=== PATIENT | female | born 1970 | race Caucasian/White ===

== ENCOUNTER 2022-06-25 19:38 | Inpatient (IN) | payer SELFPAY ==
[2022-06-25 20:21] VITALS: BMI 23.9
[2022-06-25] MEDS ORDERED: DICYCLOMINE HCL 10 MG CAPSULE PO PRN (22:33)
[2022-06-25] MEDS ORDERED: P-EPHED 60MG/TRIPROLIDI 2.5MG TABLET PO PRN (22:33)
[2022-06-25] MEDS ORDERED: NALOXONE HCL 0.4 MG/ML VIAL IM PRN (22:33)
[2022-06-25] MEDS ORDERED: BENZOCAINE/MENTHOL (CHLORASEPTIC ) LOZENGE MM PRN (22:33)
[2022-06-25] MEDS ORDERED: guaiFENesin 600 MG TABLET.ER (FP) PO PRN (22:33)
[2022-06-25] MEDS ORDERED: ACETAMINOPHEN 325 MG TABLET (FP) PO PRN ×2 (22:33)
[2022-06-25] MEDS ORDERED: BISMUTH SUBSALICYLATE 524 MG/30 ML PO PRN (22:33)
[2022-06-25] MEDS ORDERED: LOPERAMIDE HCL 2 MG CAPSULE PO PRN (22:33)
[2022-06-25] MEDS ORDERED: ONDANSETRON *ODT* 4 MG TABLET SL PRN (22:33)
[2022-06-25] MEDS ORDERED: NALOXONE HCL (KLOXXADO) 8 MG SPRAY NS PRN (22:33)
[2022-06-25] MEDS ORDERED: MAG HYDROX/AL HYDROX/SIMETH 30 ML UNIT-DOSE CUP PO PRN (22:33)
[2022-06-25] MEDS ORDERED: BENZONATATE 200 MG CAPSULE PO PRN (22:33)
[2022-06-25] MEDS ORDERED: MAGNESIUM HYDROX 2400MG/30ML ORAL SUSPENSION 30 ML CUP PO PRN (22:33)
[2022-06-25] MEDS ORDERED: NICOTINE POLACRILEX 2 MG GUM BUC PRN (22:33)
[2022-06-25] MEDS ORDERED: POLYETHYLENE GLYCOL (HEALTHYLAX) 3350 17 GM PACKET PO PRN (22:33)
[2022-06-25] MEDS ORDERED: chlordiazePOXIDE HCL 25 MG CAPSULE PO PRN (22:39)
[2022-06-25] MEDS ORDERED: chlordiazePOXIDE HCL 25 MG CAPSULE PO SCH (23:00)
[2022-06-25] MEDS ORDERED: METOPROLOL TARTRATE 25 MG TABLET (FP) PO ONE (23:00)
[2022-06-25] MEDS: diazePAM 5 MG TABLET PO SCH (23:48)
[2022-06-26] MEDS: diazePAM 5 MG TABLET PO SCH ×4 (05:48→22:19)
[2022-06-26] MEDS: METHOCARBAMOL 500 MG TABLET PO PRN ×2 (10:43→17:38)
[2022-06-26] MEDS: PRENATAL VITAMINS W/ FOLIC ACID TABLET (FP) PO SCH (10:43)
[2022-06-26] MEDS: NICOTINE 14 MG/24 HOURS TOPICAL PATCH TD SCH (10:43)
[2022-06-26 10:59] LABS: HEMATOCRIT 38.1 % (32.4-45.2); MCH 30.6 pg (25.7-33.7); MCHC 34.1 g/dl (32.0-36.0); MEAN CELL VOLUME 89.8 fl (80-96); MEAN PLT VOLUME 8.7 fl (7.5-11.1); PLATELET COUNT 182 10^3/uL (134-434); RBC 4.25 M/mm3 (3.60-5.2); RDW 15.7 % (11.6-15.6); WHITE BLOOD COUNT 4.2 K/mm3 (4.0-10.0)
[2022-06-26 11:01] LABS: POTASSIUM 4.2 mmol/L (3.5-5.1)
[2022-06-26 11:11] LABS: CALCIUM 8.9 mg/dL (8.5-10.1)
[2022-06-26 11:12] LABS: ALBUMIN 3.5 g/dl (3.4-5.0); BLOOD UREA NITROGEN 10.4 mg/dL (7-18)
[2022-06-26 11:19] LABS: BILIRUBIN,TOTAL 0.4 mg/dL (0.2-1); TOT PROT 6.5 g/dl (6.4-8.2)
[2022-06-26] MEDS: MELATONIN 5 MG TABLETS PO SCH (22:18)
[2022-06-26] MEDS: THIAMINE HCL 100 MG TABLET (FP) PO SCH (22:18)
[2022-06-26] MEDS: cloNIDine HCL 0.1 MG TABLET PO PRN (22:20)
[2022-06-27] MEDS ORDERED: chlordiazePOXIDE HCL 25 MG CAPSULE PO SCH (05:00)
[2022-06-27] MEDS: diazePAM 5 MG TABLET PO SCH ×3 (05:37→22:23)
[2022-06-27] MEDS: METHOCARBAMOL 500 MG TABLET PO PRN ×2 (05:40→22:22)
[2022-06-27] MEDS: LEVOTHYROXINE 100 MCG, LEVOTHYROXINE 50 MCG PO SCH (06:04)
[2022-06-27] MEDS ORDERED: LEVOTHYROXINE NA 150 MCG TABLET PO SCH (07:00)
[2022-06-27] MEDS: NICOTINE 14 MG/24 HOURS TOPICAL PATCH TD SCH (10:25)
[2022-06-27] MEDS: PRENATAL VITAMINS W/ FOLIC ACID TABLET (FP) PO SCH (10:25)
[2022-06-27] MEDS: diazePAM 5 MG TABLET PO PRN (10:26)
[2022-06-27] MEDS: THIAMINE HCL 100 MG TABLET (FP) PO SCH (22:22)
[2022-06-27] MEDS: hydrOXYzine PAMOATE 25 MG CAPSULE (FP) PO PRN (22:22)
[2022-06-27] MEDS: MELATONIN 5 MG TABLETS PO SCH (22:23)
[2022-06-27] MEDS: cloNIDine HCL 0.1 MG TABLET PO PRN (22:25)
[2022-06-28] MEDS ORDERED: chlordiazePOXIDE HCL 10 MG CAPSULE PO PRN
[2022-06-28] MEDS ORDERED: chlordiazePOXIDE HCL 10 MG CAPSULE PO SCH (05:00)
[2022-06-28] MEDS: diazePAM 5 MG TABLET PO SCH ×2 (05:06→17:11)
[2022-06-28] MEDS: LEVOTHYROXINE 100 MCG, LEVOTHYROXINE 50 MCG PO SCH (06:27)
[2022-06-28] MEDS: PRENATAL VITAMINS W/ FOLIC ACID TABLET (FP) PO SCH (10:27)
[2022-06-28] MEDS: NICOTINE 14 MG/24 HOURS TOPICAL PATCH TD SCH (10:28)
[2022-06-28] MEDS: METHOCARBAMOL 500 MG TABLET PO PRN ×2 (10:30→17:12)
[2022-06-28] MEDS: hydrOXYzine PAMOATE 25 MG CAPSULE (FP) PO PRN (10:30)
[2022-06-28] MEDS: cloNIDine HCL 0.1 MG TABLET PO PRN (17:11)
[2022-06-28] MEDS: THIAMINE HCL 100 MG TABLET (FP) PO SCH (22:15)
[2022-06-28] MEDS: MELATONIN 5 MG TABLETS PO SCH (22:15)
[2022-06-28] MEDS: diazePAM 5 MG TABLET PO PRN (22:16)
[2022-06-29] MEDS ORDERED: chlordiazePOXIDE HCL 10 MG CAPSULE PO SCH (05:00)
[2022-06-29] MEDS ORDERED: diazePAM 5 MG TABLET PO ONE (06:00)
[2022-06-29] MEDS: LEVOTHYROXINE 100 MCG, LEVOTHYROXINE 50 MCG PO SCH (06:01)
[2022-06-29 09:52] VITALS: BP 151/91; PULSE 91; RESP 18; TEMP 97.1
[2022-06-29] MEDS: METHOCARBAMOL 500 MG TABLET PO PRN (10:27)
[2022-06-29] MEDS: PRENATAL VITAMINS W/ FOLIC ACID TABLET (FP) PO SCH (10:27)
[2022-06-29] MEDS: cloNIDine HCL 0.1 MG TABLET PO PRN (10:27)
[2022-06-29] MEDS: NICOTINE 14 MG/24 HOURS TOPICAL PATCH TD SCH (10:28)
[2022-06-30] MEDS ORDERED: chlordiazePOXIDE HCL 10 MG CAPSULE PO ONE (05:00)
== END 2022-06-29 10:52 | disposition home or self-care (01) | DRG 774 ==
LOC: YASAS 19:38 → Y6N 22:20
PROVIDERS: ADMIT Allergy & Immunology; ATTEND Surgery
PROC: HZ2ZZZZ Detoxification Services for Substance Abuse Treatment (ICD-10-PCS; principal; 2022-06-25)
DX: F10.230 Alcohol dependence with withdrawal, uncomplicated (principal); F14.20 Cocaine dependence, uncomplicated; F17.210 Nicotine dependence, cigarettes, uncomplicated; F33.1 Major depressive disorder, recurrent, moderate; F19.282 Other psychoactive substance dependence with psychoactive substance-induced sleep disorder; F19.24 Other psychoactive substance dependence with psychoactive substance-induced mood disorder; I10 Essential (primary) hypertension; E89.0 Postprocedural hypothyroidism; Z85.850 Personal history of malignant neoplasm of thyroid; M54.50 Low back pain, unspecified; G89.29 Other chronic pain; Z28.310 Unvaccinated for COVID-19; Z28.9 Immunization not carried out for unspecified reason; Z59.01 Sheltered homelessness; Z56.0 Unemployment, unspecified; Z88.8 Allergy status to other drugs, medicaments and biological substances
CPT/HCPCS: 36415; 80053; 81025; 85027; 86780; 93005; 93010; C9803-CS; U0003; U0005

== ENCOUNTER 2023-05-17 13:46 | Inpatient (IN) | payer OTHER ==
[2023-05-17 14:19] VITALS: BMI 25.2
[2023-05-17] MEDS ORDERED: ACETAMINOPHEN 325 MG TABLET (FP) PO PRN (15:25)
[2023-05-17] MEDS ORDERED: BENZOCAINE/MENTHOL (CHLORASEPTIC ) LOZENGE MM PRN (15:25)
[2023-05-17] MEDS ORDERED: DICYCLOMINE HCL 10 MG CAPSULE PO PRN (15:25)
[2023-05-17] MEDS ORDERED: IBUPROFEN 400 MG TABLET (FP) PO PRN (15:25)
[2023-05-17] MEDS ORDERED: guaiFENesin 600 MG TABLET.ER (FP) PO PRN (15:25)
[2023-05-17] MEDS ORDERED: BISMUTH SUBSALICYLATE 524 MG/30 ML PO PRN (15:25)
[2023-05-17] MEDS ORDERED: MAGNESIUM HYDROX 2400MG/30ML ORAL SUSPENSION 30 ML CUP PO PRN (15:25)
[2023-05-17] MEDS ORDERED: hydrOXYzine PAMOATE 25 MG CAPSULE (FP) PO PRN (15:25)
[2023-05-17] MEDS ORDERED: LOPERAMIDE HCL 2 MG CAPSULE PO PRN (15:25)
[2023-05-17] MEDS ORDERED: POLYETHYLENE GLYCOL (HEALTHYLAX) 3350 17 GM PACKET PO PRN (15:25)
[2023-05-17] MEDS ORDERED: BENZONATATE 200 MG CAPSULE PO PRN (15:25)
[2023-05-17] MEDS ORDERED: ONDANSETRON *ODT* 4 MG TABLET SL PRN (15:25)
[2023-05-17] MEDS ORDERED: IBUPROFEN 600 MG TABLET (FP) PO PRN (15:25)
[2023-05-17] MEDS ORDERED: MAG HYDROX/AL HYDROX/SIMETH 30 ML UNIT-DOSE CUP PO PRN (15:25)
[2023-05-17] MEDS: diazePAM 5 MG TABLET PO SCH ×2 (16:23→22:00)
[2023-05-17] MEDS: METHOCARBAMOL 500 MG TABLET PO PRN (18:51)
[2023-05-17] MEDS: diazePAM 5 MG TABLET PO PRN (18:51)
[2023-05-17] MEDS: METOPROLOL TARTRATE 50 MG TABLET (FP) PO ONE (18:55)
[2023-05-17] MEDS: NICOTINE 21 MG/24 HOURS TOPICAL PATCH TD SCH (21:09)
[2023-05-17] MEDS: MELATONIN 5 MG TABLETS PO SCH (22:00)
[2023-05-17] MEDS: THIAMINE HCL 100 MG TABLET (FP) PO SCH (22:00)
[2023-05-17] MEDS: LISINOPRIL 20 MG TABLET PO ONE (22:00)
[2023-05-17] MEDS: GABAPENTIN 300 MG CAPSULE PO SCH (22:00)
[2023-05-17] MEDS: VENLAFAXINE HCL 75 MG E.R. CAPSULES PO SCH (22:27)
[2023-05-18] MEDS: cloNIDine HCL 0.1 MG TABLET PO PRN (06:12)
[2023-05-18] MEDS: LEVOTHYROXINE 112 MCG, LEVOTHYROXINE 25 MCG PO SCH (08:39)
[2023-05-18] MEDS ORDERED: LEVOTHYROXINE NA 150 MCG TABLET PO SCH (10:00)
[2023-05-18] MEDS: HYDROCHLOROTHIAZIDE 12.5 MG CAPSULE (FP) PO SCH (10:14)
[2023-05-18] MEDS: LISINOPRIL 20 MG TABLET PO SCH (10:14)
[2023-05-18] MEDS: FOLIC ACID 1 MG TABLET (FP) PO SCH (10:14)
[2023-05-18] MEDS: metoPROLOL SUCCINATE 25 MG TAB.SR.24H (FP) PO SCH (10:14)
[2023-05-18] MEDS: TOPIRAMATE 100 MG TABLET PO SCH (10:24)
[2023-05-18 12:17] LABS: HEMATOCRIT 45.2 % (32.4-45.2); HEMOGLOBIN 14.7 GM/dL (10.7-15.3); MCH 32.6 pg (25.7-33.7); MCHC 32.6 g/dl (32.0-36.0); MEAN CELL VOLUME 99.9 fl (80-96); MEAN PLT VOLUME 8.2 fl (7.5-11.1); PLATELET COUNT 178 10^3/uL (134-434); RBC 4.52 M/mm3 (3.60-5.2); RDW 13.6 % (11.6-15.6); WHITE BLOOD COUNT 5.7 K/mm3 (4.0-10.0)
[2023-05-18 12:52] LABS: CHLORIDE 101 mmol/L (98-107); POTASSIUM 4.2 mmol/L (3.5-5.1); SODIUM 137 mmol/L (136-145)
[2023-05-18 12:53] LABS: GLUCOSE,RANDOM 119 mg/dL (74-106)
[2023-05-18 12:55] LABS: ALBUMIN 3.6 g/dl (3.4-5.0); ANION GAP 5 mmol/L (4-13); CO2 30 mmol/L (21-32)
[2023-05-18 12:58] LABS: CALCIUM 8.6 mg/dL (8.5-10.1); CREATININE 1.1 mg/dL (0.55-1.3); SGPT/ALT 43 U/L (13-61)
[2023-05-18 12:59] LABS: BLOOD UREA NITROGEN 8.6 mg/dL (7-18)
[2023-05-18 13:01] LABS: ALK PHOS 76 U/L (45-117)
[2023-05-18 13:02] LABS: SGOT/AST 63 U/L (15-37)
[2023-05-18 13:03] LABS: BILIRUBIN,TOTAL 0.8 mg/dL (0.2-1); TOT PROT 6.7 g/dl (6.4-8.2)
[2023-05-19] MEDS: diazePAM 5 MG TABLET PO SCH (05:38)
[2023-05-20] MEDS: diazePAM 5 MG TABLET PO SCH (06:01)
[2023-05-20] MEDS: VENLAFAXINE HCL 37.5 MG E.R. CAPSULE PO SCH (09:47)
[2023-05-21] MEDS: diazePAM 5 MG TABLET PO ONE (06:04)
[2023-05-21 06:12] VITALS: TEMP 97.6
[2023-05-21 09:28] VITALS: BP 104/68; PULSE 66; RESP 16
== END 2023-05-21 10:54 | disposition home or self-care (01) | DRG 775 ==
LOC: YASAS 13:46 → Y3N 16:52
PROVIDERS: ADMIT Allergy & Immunology; ATTEND Surgery
PROC: HZ2ZZZZ Detoxification Services for Substance Abuse Treatment (ICD-10-PCS; principal; 2023-05-17)
DX: F10.230 Alcohol dependence with withdrawal, uncomplicated (principal); F17.210 Nicotine dependence, cigarettes, uncomplicated; F33.1 Major depressive disorder, recurrent, moderate; F19.24 Other psychoactive substance dependence with psychoactive substance-induced mood disorder; F39 Unspecified mood [affective] disorder; F41.9 Anxiety disorder, unspecified; I10 Essential (primary) hypertension; E89.0 Postprocedural hypothyroidism; Z85.850 Personal history of malignant neoplasm of thyroid; M54.50 Low back pain, unspecified; G89.29 Other chronic pain; Z28.310 Unvaccinated for COVID-19; Z28.9 Immunization not carried out for unspecified reason; Z56.0 Unemployment, unspecified; Z59.01 Sheltered homelessness; Z88.8 Allergy status to other drugs, medicaments and biological substances
CPT/HCPCS: 36415; 80053; 80307; 81025; 84439; 84443; 85027; 86780; 93005; 93010